=== PATIENT | female | born 1995 | race Two or more races ===

== ENCOUNTER 2019-09-30 14:56 | Emergency (ER) | payer SELFPAY ==
--- NOTE | 2019-09-30 15:06 | NUR ---
called for triage not in the waiting room
--- NOTE | 2019-09-30 15:18 | NUR ---
CALLED IN WAITING ROOM. NO REPLY.
== END 2019-09-30 15:29 | disposition left against medical advice (07) ==
LOC: ER 15:05
DX: Z53.21 Procedure and treatment not carried out due to patient leaving prior to being seen by health care provider (principal)